=== PATIENT | female | born 1995 | race African-American/Black ===

== ENCOUNTER 2022-03-06 15:58 | Emergency (ER) | payer MEDICAID ==
[~2022-03-06] VITALS: Ht 165.1 cm; Wt 64.0 kg
[2022-03-06 16:02] VITALS: BP 150/98
[2022-03-06 18:50] LABS: BASOPHILS % 0.6 % (0.0-2.0); EOSINOPHILS % 0.2 % (0.0-5.0); HEMATOCRIT. 29.5 % (36.0-48.0); HEMOGLOBIN. 10.2 g/dL (12.0-16.0); LYMPHOCYTES % 27.3 % (20.0-50.0); MEAN CORPUSCULAR HEMOGLOBIN 30.7 pg (28.0-32.0); MEAN CORPUSCULAR VOLUME 88.4 fL (81.0-99.0); MEAN PLATELET VOLUME 6.8 fl (7.4-10.4); MONOCYTES % 9.9 % (2.0-8.0); PLATELET 320 x1000/uL (130-400); RED BLOOD CELL COUNT 3.34 mill/uL (4.2-5.4); RED CELL DISTRIBUTION WIDTH 14.5 % (11.6-14.6)
[2022-03-06 18:55] LABS: CHLORIDE 104 mEq/L (98-107)
[2022-03-06 19:02] LABS: CLARITY URINE CLOUDY (CLEAR); COLOR URINE DARK YELLOW (YELLOW); KETONES URINE NEGATIVE (NEGATIVE); LEUKOCYTE ESTERASE URINE TRACE (NEGATIVE); NITRITE URINE NEGATIVE (NEGATIVE); OCCULT BLOOD URINE 3+ (NEGATIVE); PROTEIN URINE 4+ (NEGATIVE); SPECIFIC GRAVITY URINE 1.042 (1.005-1.030); UROBILINOGEN URINE 0.2 E.U./dL (0.2-1.0)
[2022-03-06 19:33] LABS: B-HCG QUANTITATIVE 14490 mIU/mL (<3)
[2022-03-06] MEDS ORDERED: METHYLERGONOVINE MALEATE 0.2MG TABLET PO ONE (22:00)
[2022-03-06] MEDS ORDERED: MISOPROSTOL 200MCG TABLET PO ONE (22:00)
== END 2022-03-06 22:53 | disposition home or self-care (01) ==
LOC: ER 15:58
DX: O26.891 Other specified pregnancy related conditions, first trimester (principal); N93.9 Abnormal uterine and vaginal bleeding, unspecified; Z3A.09 9 weeks gestation of pregnancy
CPT/HCPCS: 36415; 76830; 76856; 80053; 81003; 84702; 85025; 86850; 86900; 99291